=== PATIENT | male | born 1960 | race American Indian/Alaskan Native ===

== ENCOUNTER 2020-06-29 09:00 | Day surgery (SDC) | payer BC ==
[~2020-06-29 09:00] MED LIST: LACTATED RINGERS 1,000 ML IV SCH; WATER FOR IRRIG STERILE 1,500 ML BOTTLE IR ONE; WATER FOR IRRIG STERILE 2000 ML IR ONE
[2020-06-29] MEDS ORDERED: BACTERIOSTATIC SODIUM CHLORIDE 0.9% 30 ML VIAL INFILTRATI ONE (09:12)
[2020-06-29] MEDS ORDERED: LIDOCAINE MPF (2%) 20 MG/1 ML VIAL 5 ML ONE (09:27)
[2020-06-29] MEDS ORDERED: dexAMETHasone 20 MG/5 ML VIAL ONE (09:27)
[2020-06-29] MEDS ORDERED: fentaNYL 100 MCG/2 ML INJ ONE (09:27)
[2020-06-29] MEDS ORDERED: propofoL 200 MG/20 ML VIAL IV ONE (09:27)
[2020-06-29] MEDS ORDERED: ONDANSETRON 4 MG/2 ML INJ ONE (09:27)
[2020-06-29] MEDS ORDERED: HYDROmorphone 1 MG/1 ML INJ IV PRN ×2 (09:55)
--- NOTE | 2020-06-29 09:55 | Anesthesia Day of Surgery ---
Anesthesia Day of Surgery - Day of Surgery Patient Examined: Yes Patient H&P Reviewed: Yes Patient is NPO: Yes
--- NOTE | 2020-06-29 09:56 | Anesthesia Consultation ---
Anesthesia Consult and Med Hx Date of service: 06/29/20 - Airway Anesthetic Teeth Evaluation: Crowns ROM Head & Neck: Adequate Mental/Hyoid Distance: Adequate Mallampati Class: Class II Intubation Access Assessment: Good - Pre-Operative Health Status ASA Pre-Surgery Classification: ASA1 Proposed Anesthetic Plan: General - Pulmonary Hx Smoking: No Hx Sleep Apnea: No (LIZY PRE SCREEN HIGH RISK) - Cardiovascular System Hx Hypertension: No - Central Nervous System Hx Psychiatric Problems: No - Gastrointestinal Hx Gastroesophageal Reflux Disease: Yes (Dietary, occasional) - Endocrine Hx Renal Disease: No Hx Non-Insulin Dependent Diabetes: No Hx Thyroid Disease: No - Hematic Hx Sickle Cell Disease: No - Other Systems Hx Cancer: No
[2020-06-29] MEDS ORDERED: ceFAZolin/STERILE WATER 2 GM/20 ML SYRINGE IV NR (10:00)
[2020-06-29] MEDS ORDERED: ONDANSETRON 4 MG/2 ML INJ IV PRN (10:00)
[2020-06-29] MEDS ORDERED: WATER FOR IRRIG STERILE 1,500 ML BOTTLE IR ONE (11:54)
[2020-06-29] MEDS ORDERED: WATER FOR IRRIG STERILE 2000 ML IR ONE (11:54)
--- NOTE | 2020-06-29 12:41 | Post Operative Note ---
Date of procedure: 06/29/20 Pre-op diagnosis: penile lesion Post-op diagnosis: same Findings: large lesion Procedure: excision and cysto Anesthesia: GETA Surgeon: CHERYL BENTON Estimated blood loss: minimal Pathology: list (penile) Specimen disposition: to lab Condition: stable Disposition: PACU
--- NOTE | 2020-06-29 12:42 | Discharge Summary ---
Short Stay Discharge Plan Activity: other (no sex no straining ) Weight Bearing Status: Full Weight Bearing Diet: regular, low fat, low cholesterol, low salt Wound: open to air (remove dression tonight ) Follow up with: DAVID VALENZUELA [Primary Care Provider] - 7 Days CHERYL BENTON MD [Staff Physician] - 7 Days
[2020-06-29 13:02] VITALS: BP 122/82
--- NOTE | 2020-06-29 13:07 | Operative Report ---
PREOPERATIVE DIAGNOSIS: Verrucous penile lesion. POSTOPERATIVE DIAGNOSIS: Verrucous penile lesion. PROCEDURE: Excision of lesion, fulguration and closure and flexible cystoscopy. SURGEON: Dr. Pearson. ANESTHESIA: General. FINDINGS: This is a gentleman with a 2 cm lesion on the penis. 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 All risks and implications discussed. DESCRIPTION OF PROCEDURE: The patient was brought to the outpatient operating table. Following induction of anesthesia, prepped and draped in the usual sterile fashion. The lesion was excised in total and area undermined and secured and sutured with 4-0 chromic. Once this was irrigated, we were sure that there were no other visible lesions. We did cauterize the base. No significant bleeding, less than 3 mL. A flexible cystoscopy showed no lesions in the urethra. The prostatic urethra was not enlarged. He had some bilobar hypertrophy. No trabeculations. The patient tolerated the procedure well and brought to recovery in stable condition. [facility]# [id number] YAYO/COLTON
--- NOTE | 2020-06-29 13:47 | Post Anesthesia Evaluation ---
- Post Anesthesia Evaluation Patient Participated: Yes Airway Patent: Yes Stable Respiratory Function: Yes Nausea/Vomiting: No Temp > 96.8F: Yes Pain Manageable: Yes Adequeate Hydration: Yes Anesthesia Complications: No Block Receding Appropriately: Not Applicable Patient on Ventilator: No
--- NOTE | 2020-06-29 14:58 | XRay Report ---
INTRAOPERATIVE FLUOROSCOPY: ABDOMEN INDICATION: Hematuria. Removal of penile lesion. TECHNIQUE: Intraoperative spot images were obtained during the procedure. FINDINGS: No significant abnormality is identified on the single submitted spot fluoroscopic image. Please see the operative report for further details. Fluoroscopy Time: 3 seconds. Fluoroscopy Images: 1. Signer Name: Avinash De La Fuente MD Signed: 06/29/2020 2:54 PM Workstation Name: [id number]
== END 2020-06-29 09:01 | disposition home or self-care (01) ==
LOC: OR 09:00
PROVIDERS: ATTEND Urology
DX: N48.89 Other specified disorders of penis (principal); L82.1 Other seborrheic keratosis; K21.9 Gastro-esophageal reflux disease without esophagitis; Z98.890 Other specified postprocedural states
CPT/HCPCS: 11422; 74018; 88305; A4217; J0690; J1100; J2405; J2704; J3010; J7120; Q9967